=== PATIENT | male | born 1995 | race Two or more races ===

== ENCOUNTER 2022-07-15 12:14 | Emergency (ER) | payer OTHER, SELFPAY ==
--- NOTE | ~2022-07-15 | XR_ITS ---
EXAMINATION: XR CHEST CLINICAL INFORMATION: Chest tightness and shortness of breath COMPARISON: None TECHNIQUE: 2 views of the chest were obtained. FINDINGS: Heart size normal. No evidence of CHF. No consolidations or lung masses. There is some emptying of the lateral costophrenic angle on the left posterior costophrenic angle is sharp. No gross pleural effusions. XR/XR chest 2V IMPRESSION: No acute intrathoracic disease.
--- NOTE | 2022-07-15 12:19 | ECG_ITS ---
Test Reason : cp Blood Pressure : / mmHG Vent. Rate : 061 BPM Atrial Rate : 061 BPM P-R Int : 112 ms QRS Dur : 090 ms QT Int : 384 ms P-R-T Axes : 052 035 068 degrees QTc Int : 386 ms Normal sinus rhythm Normal ECG No previous ECGs available Referred By: Ria Jennings Electronically Signed By:AYALA BOOKER
--- NOTE | 2022-07-15 12:24 | ED.CHESTPAIN ---
HPI - Chest Pain General Chief Complaint: Chest Pain <AWA James Last Filed: 07/15/22 12:29> Stated Complaint: chest pain <AWA James Last Filed: 07/15/22 12:29> Time Seen by Provider: 07/15/22 12:40 <AWA James Last Filed: 07/15/22 12:29> Source: patient <AWA Quispe Last Filed: 07/15/22 18:50> Mode of arrival: ambulatory <AWA Quispe Last Filed: 07/15/22 18:50> History of Present Illness HPI narrative: 27-year-old male with past medical history of spontaneous pneumothorax presenting to the ED complaining of constant chest tightness since this morning with radiation to left upper extremity. admits pain slightly worse with movement. Reports GI symptoms with nausea, vomiting, and intermittent pain starting on Wednesday. Reports chest discomfort has improved since ED presentation. Denies numbness, tingling, weakness, current nausea/ vomiting or diarrhea, abdominal pain, cigarette smoking. Reports occasional marijuana use. Denies other illicit substances <AWA Quispe Last Filed: 07/15/22 18:50> MD complaint: chest pain <AWA Quispe Last Filed: 07/15/22 18:50> Onset (ago): hour(s) <AWA Quispe Last Filed: 07/15/22 18:50> Related Data Allergies/Adverse Reactions: Allergies Allergy/AdvReac Type Severity Reaction Status Date / Time No Known Allergies Allergy Verified 07/15/22 12:19 <AWA James Last Filed: 07/15/22 12:29> Review of Systems Review of Systems: Constitutional: No Fever, No Chills, No Fatigue, No Malaise ENT/Mouth: No Ear Pain, No Nasal Congestion, No sore throat, No Rhinorrhea, No Swallowing Difficulty Eyes: No Eye Pain, No Swelling, No Redness, No Vision Changes Cardiovascular: + Chest Pain, No SOB, No Edema, No Palpitations Respiratory: No Cough, No Sputum, No Wheezing, No Dyspnea Gastrointestinal: + Nausea (resolved), + Vomiting (resolved), No Diarrhea, No Constipation, No Abdominal pain Genitourinary: No Dysuria, No Urinary Frequency, No Hematuria, No Flank Pain Musculoskeletal: No joint pain, No Myalgias, No Joint Swelling Skin: No Skin Lesions, No rash Neuro: No Weakness, No Numbness, No Paresthesias, No Loss of Consciousness, No Dizziness, No Headache <AWA Quispe - Last Filed: 07/15/22 18:50> Yes all other systems are reviewed and are negative <AWA Quispe - Last Filed: 07/15/22 18:50> Constitutional: Constitutional: Reports as per HPI <AWA Quispe - Last Filed: 07/15/22 18:50> [facility] Past Medical History Attestation statement: The following information was validated with the patient. <AWA Quispe - Last Filed: 07/15/22 18:50> Medical History: Medical History (Updated 07/15/22 @ 17:05 by AWA Quispe) Pneumothorax <AWA James - Last Filed: 07/15/22 12:29> Family History Family History: Family History (Updated 07/15/22 @ 16:47 by Michele Garcia MD) Mother No problems noted. Father No problems noted. <AWA James - Last Filed: 07/15/22 12:29> Physical Exam Vital Signs: Vital Signs: Last Vital Signs Temp 98 F 07/15/22 12:28 Pulse 73 07/15/22 17:44 Resp 18 07/15/22 17:44 BP 127/75 07/15/22 17:44 Pulse Ox 98 07/15/22 17:44 O2 Del Method 07/15/22 17:44 BMI result Body Mass Index 23.3 <AWA James - Last Filed: 07/15/22 12:29> Vital Signs: Last Vital Signs Temp 98 F 07/15/22 12:28 Pulse 73 07/15/22 17:44 Resp 18 07/15/22 17:44 BP 127/75 07/15/22 17:44 Pulse Ox 98 07/15/22 17:44 O2 Del Method 07/15/22 17:44 BMI result Body Mass Index 23.3 <AWA Quispe - Last Filed: 07/15/22 18:50> Const: General: cooperative, healthy appearing and no acute distress <AWA Quispe - Last Filed: 07/15/22 18:50> Orientation/consciousness: patient oriented x3 <AWA Quispe - Last Filed: 07/15/22 18:50> Limitations: no limitations <AWA Quispe - Last Filed: 07/15/22 18:50> HEENT: Head: Yes normal to inspection and Yes atraumatic <AWA Quispe - Last Filed: 07/15/22 18:50> Ears: hearing grossly normal bilaterally <Yuliya Bee PA - Last Filed: 07/15/22 18:50> General nose exam: Normal external nose present <AWA Quispe - Last Filed: 07/15/22 18:50> Face and sinus: Yes normal facial exam <AWA Quispe - Last Filed: 07/15/22 18:50> Eyes: General: appearance normal, both eyes and all related structures <AWA Quispe - Last Filed: 07/15/22 18:50> EOM: EOMs intact bilaterally <Yuliya Bee PA - Last Filed: 07/15/22 18:50> Neck: Neck: Yes normal visual inspection and Yes no meningeal signs <AWA Quispe - Last Filed: 07/15/22 18:50> Chest: Chest palpation & inspection: normal inspection of the chest, no crepitus and no tenderness <AWA Quispe - Last Filed: 07/15/22 18:50> Resp: Effort & Inspection: normal respiratory effort and no respiratory distress <AWA Quispe - Last Filed: 07/15/22 18:50> Auscultation: clear to auscultation bilaterally, no crackles, no rales, no rhonchi and no wheezes <AWA Quispe - Last Filed: 07/15/22 18:50> Cardio: Rate: regular rate <WAA Quispe - Last Filed: 07/15/22 18:50> Heart sounds: S1 normal heart sound present and S2 normal heart sound present <AWA Quispe - Last Filed: 07/15/22 18:50> Peripheral pulses: Peripheral pulses 2+ throughout <AWA Quispe - Last Filed: 07/15/22 18:50> GI: Inspection: Yes normal to inspection <AWA Quispe - Last Filed: 07/15/22 18:50> Palpation (GI): Soft to palpation, nontender, no guarding and not rigid <AWA Quispe - Last Filed: 07/15/22 18:50> Skin: Rashes: no rashes <AWA Quispe - Last Filed: 07/15/22 18:50> Wounds: no wounds <AWA Quispe - Last Filed: 07/15/22 18:50> Neuro: General: patient oriented x3, tone normal and no meningeal signs <AWA Quispe - Last Filed: 07/15/22 18:50> Gait exam (Neuro): Normal gait present <AWA Quispe - Last Filed: 07/15/22 18:50> Extrem: General: Yes normal to inspection, Yes no pedal edema and Yes no calf tenderness <AWA Quispe Last Filed: 07/15/22 18:50> Course Course Course Narrative: RME-12:30pm 27yoM c PMHx of Spontaneous pneumothorax c c/o of Chest tightness and SOB since Wednesday that has been intermittent. Today he reports he was just laying down and started and felt very intense. Had a GI bug Wednesday although feels better from that but was having N/V. Has not had any N/V since then. Denies drug usage including cocaine. Denies recent travel. Plan: EKG, CXR, COVID/RSV/flu swab and labs and patient will be sent back to the waiting room for further evaluation treatment. <AWA James - Last Filed: 07/15/22 12:29> RME-12:30pm 27yoM c PMHx of Spontaneous pneumothorax c c/o of Chest tightness and SOB since Wednesday that has been intermittent. Today he reports he was just laying down and started and felt very intense. Had a GI bug Wednesday although feels better from that but was having N/V. Has not had any N/V since then. Denies drug usage including cocaine. Denies recent travel. Plan: EKG, CXR, COVID/RSV/flu swab and labs and patient will be sent back to the waiting room for further evaluation treatment. - patient's troponin elevated at 597.7 >> case discussed with ED attending who also evaluated patient, repeat EKG with slight changes >> will give patient ASA, nitro paste, IV Toradol and consult Cardiology - Consulted Cardiology Dr. Garcia who recommended stat echo and NSAIDs as possibly Lamine /pericarditis XR chest 2V IMPRESSION: No acute intrathoracic disease. - COVID-19/influenza/ RSV negative -1455-- no leukocytosis. D-dimer negative. CRP mildly elevated to 1.45 -1600--repeat trop 1398.3 > ECHO at bedside, will obtain repeat EKG -1700--Transthoracic Echocardiogram Conclusions: - The left ventricular systolic function is low normal.? The ? ? calculated ejection fraction is 54% by biplane method. ? - The inferolateral wall, the apical inferior, basal inferior, ? and mid anterolateral segments are hypokinetic.? - No obvious valvular pathology seen on this study.? >> patient to be transferred to [facility] & initiate IV heparin per Dr. Garcia. No bed available at this time, will check back in a few hours Jose. [id number]-- Accepting physician <AWA Quispe - Last Filed: 07/15/22 18:50> Medications Administered Discontinued Medications Generic Name Dose Route Start Last Admin Trade Name Freq PRN Reason Stop Dose Admin Aspirin 324 mg 07/15/22 13:28 07/15/22 13:43 Aspirin 81 Mg Tab.Chew PO 07/15/22 13:29 324 mg ONCE ONE Administration Famotidine 20 mg 07/15/22 13:29 07/15/22 13:44 Famotidine/Pf 20 Mg/2 Ml Vial IVPUSH 07/15/22 13:30 20 mg ONCE ONE Administration Heparin Sodium/Sodium Chloride 25,000 unit in 250 mls @ 0 mls/hr 07/15/22 17:15 07/15/22 17:49 Heparin Sodium,Porcine/1/2ns IVCONT 12 units/kg/hr .Q0M RICHIE 9.92 mls/hr Administration Protocol Per Protocol Ketorolac Tromethamine 15 mg 07/15/22 13:29 07/15/22 13:43 Ketorolac Tromethamine 15 Mg/Ml Vial IVPUSH 07/15/22 13:30 15 mg ONCE ONE Administration Nitroglycerin 1 inch 07/15/22 13:28 07/15/22 13:44 Nitroglycerin 2 % Oint 1 Gm Packet TRANSDERMA 07/15/22 13:29 1 inch ONCE ONE Administration <AWA James - Last Filed: 07/15/22 12:29> Medications Administered Discontinued Medications Generic Name Dose Route Start Last Admin Trade Name Freq PRN Reason Stop Dose Admin Aspirin 324 mg 07/15/22 13:28 07/15/22 13:43 Aspirin 81 Mg Tab.Chew PO 07/15/22 13:29 324 mg ONCE ONE Administration Famotidine 20 mg 07/15/22 13:29 07/15/22 13:44 Famotidine/Pf 20 Mg/2 Ml Vial IVPUSH 07/15/22 13:30 20 mg ONCE ONE Administration Heparin Sodium/Sodium Chloride 25,000 unit in 250 mls @ 0 mls/hr 07/15/22 17:15 07/15/22 17:49 Heparin Sodium,Porcine/1/2ns IVCONT 12 units/kg/hr .Q0M RICHIE 9.92 mls/hr Administration Protocol Per Protocol Ketorolac Tromethamine 15 mg 07/15/22 13:29 07/15/22 13:43 Ketorolac Tromethamine 15 Mg/Ml Vial IVPUSH 07/15/22 13:30 15 mg ONCE ONE Administration Nitroglycerin 1 inch 07/15/22 13:28 07/15/22 13:44 Nitroglycerin 2 % Oint 1 Gm Packet TRANSDERMA 07/15/22 13:29 1 inch ONCE ONE Administration <AWA Quispe - Last Filed: 07/15/22 18:50> Medical Decision Making Medical Decision Making MDM Narrative: 27-year-old male with past medical history of spontaneous pneumothorax presenting to the ED complaining of constant chest tightness since this morning with radiation to left upper extremity. On exam vital signs stable, NAD/nontoxic appearing, chest pain not reproducible, lungs CTA, abdomen soft/ nontender, no pedal edema/calf tenderness. Concern for pericarditis/myocarditis vs ACS vs GERD/gastritis. PE on ddx but lower. Rule out recurrent pneumothorax vs pneumonia plan: EKG, labs, CXR, COVID-19/influenza/ RSV testing Please refer to course for remaining clinical decision making, interpretation of labs/imaging results, and discussions with consultants and/or family members. <AWA Quispe - Last Filed: 07/15/22 18:50> Differential Diagnosis Differential Diagnoses: The differential diagnosis associated with the presentation includes <AWA Quispe - Last Filed: 07/15/22 18:50> as above <AWA Quispe - Last Filed: 07/15/22 18:50> Admission/Observation Consideration of admission/observation: Escalation of care including admission/observation considered <AWA Quispe - Last Filed: 07/15/22 18:50> Consult Healthcare Provider Management of the patient was discussed with: Leather Polisher <AWA Quispe - Last Filed: 07/15/22 18:50> Dr. Restrepo (ED Attending) <AWA Quispe - Last Filed: 07/15/22 18:50> Lab Data MDM Lab Attestation statement: I reviewed the patient's lab results. <AWA Quispe - Last Filed: 07/15/22 18:50> Result Diagrams: 07/15/22 12:34 07/15/22 12:34 <AWA James - Last Filed: 07/15/22 12:29> Labs: Lab Results 07/15/22 07/15/22 07/15/22 Range/Units 12:34 12:34 12:34 WBC 7.6 (4.8-10.8) X10*3/uL RBC 5.17 (4.60-5.80) X10*6/uL Hgb 16.2 (14.0-18.0) g/dl Hct 46.9 (42.0-52.0) % MCV 90.7 (80.0-98.0) fL MCH 31.3 (27.0-33.0) pg MCHC 34.5 (31.0-36.0) g/dl RDW 13.5 (11.0-16.0) % Plt Count 188 (160-400) X10*3/uL MPV 11.1 (9.4-12.4) fL Immature Gran % (Auto) 0.1 (0.0-0.4) % Neut % (Auto) 56.1 (45-73) % Lymph % (Auto) 30.3 (20-40) % [place] % (Auto) 11.8 H (2-11) % Eos % (Auto) 1.4 (0-4) % Baso % (Auto) 0.3 (0-2) % Lymph # (Auto) 2.3 (1.2-4.9) X10*3/uL [place] # (Auto) 0.9 (0.1-1.2) X10*3/uL Eos # (Auto) 0.1 (0.0-0.4) X10*3/uL Baso # (Auto) 0.0 (0.0-0.2) X10*3/uL Abs Immat Gran (auto) 0.01 (0.00-0.03) X10*3/uL Absolute Neuts (auto) 4.3 (2.0-8.3) x10*3/uL Absolute Nucleated RBC 0.000 (0.0-0.012) X10*3/uL Nucleated RBC % (auto) 0.0 (0.0-0.2) /100WBC PT (10.0-13.1) SEC INR (0.9-1.1) APTT (26.0-36.4) SEC D-Dimer High Sensitivty NG/ML Sodium 139 (135-145) mmol/L Potassium 4.2 (3.3-5.1) mmol/L Chloride 102 (96-108) mmol/L Carbon Dioxide 27 (22-29) mmol/L Anion Gap 14 (12-20) BUN 13 (9-16) mg/dL Creatinine 1.09 (0.5-1.4) mg/dL Estim Creat Clear Calc 119.6 Estimated GFR > 60 Random Glucose 99 (60-115) mg/dL Calcium 9.4 (8.4-10.2) mg/dL Magnesium 1.8 (1.6-2.6) mg/dL Total Bilirubin 0.8 (0.0-1.0) mg/dL AST 22 (5-37) U/L ALT 21 (0-40) U/L Alkaline Phosphatase 102 (39-117) U/L Troponin I High Sens (<3.5-35.0) ng/L C-Reactive Protein 1.45 H (< or = 0.50) mg/dL B-Natriuretic Peptide (<100) pg/mL Total Protein 7.6 (6.5-8.0) g/dL Albumin 4.4 (3.5-5.0) g/dL Lipase 11 (8-78) U/L Urine Opiates Screen (Not Detect) Urine Fentanyl Screen (Not Detect) Ur Barbiturates Screen (Not Detect) Ur Phencyclidine Scrn (Not Detect) Ur Amphetamines Screen (Not Detect) U Benzodiazepines Scrn (Not Detect) Urine Cocaine Screen (Not Detect) U Marijuana (THC) Screen (Not Detect) Influenza Type A (PCR) NEGATIVE (Negative) Influenza Type B (PCR) NEGATIVE (Negative) RSV RNA Qual (PCR) NEGATIVE (Negative) SARS-CoV-2 RNA (RT-PCR) NEGATIVE (Negative) 07/15/22 07/15/22 07/15/22 Range/Units 12:34 12:34 13:51 WBC (4.8-10.8) X10*3/uL RBC (4.60-5.80) X10*6/uL Hgb (14.0-18.0) g/dl Hct (42.0-52.0) % MCV (80.0-98.0) fL MCH (27.0-33.0) pg MCHC (31.0-36.0) g/dl RDW (11.0-16.0) % Plt Count (160-400) X10*3/uL MPV (9.4-12.4) fL Immature Gran % (Auto) (0.0-0.4) % Neut % (Auto) (45-73) % Lymph % (Auto) (20-40) % [place] % (Auto) (2-11) % Eos % (Auto) (0-4) % Baso % (Auto) (0-2) % Lymph # (Auto) (1.2-4.9) X10*3/uL [place] # (Auto) (0.1-1.2) X10*3/uL Eos # (Auto) (0.0-0.4) X10*3/uL Baso # (Auto) (0.0-0.2) X10*3/uL Abs Immat Gran (auto) (0.00-0.03) X10*3/uL Absolute Neuts (auto) (2.0-8.3) x10*3/uL Absolute Nucleated RBC (0.0-0.012) X10*3/uL Nucleated RBC % (auto) (0.0-0.2) /100WBC PT (10.0-13.1) SEC INR (0.9-1.1) APTT (26.0-36.4) SEC D-Dimer High Sensitivty < 150 NG/ML Sodium (135-145) mmol/L Potassium (3.3-5.1) mmol/L Chloride (96-108) mmol/L Carbon Dioxide (22-29) mmol/L Anion Gap (12-20) BUN (9-16) mg/dL Creatinine (0.5-1.4) mg/dL Estim Creat Clear Calc Estimated GFR Random Glucose (60-115) mg/dL Calcium (8.4-10.2) mg/dL Magnesium (1.6-2.6) mg/dL Total Bilirubin (0.0-1.0) mg/dL AST (5-37) U/L ALT (0-40) U/L Alkaline Phosphatase (39-117) U/L Troponin I High Sens 597.7 H* (<3.5-35.0) ng/L C-Reactive Protein (< or = 0.50) mg/dL B-Natriuretic Peptide 18 (<100) pg/mL Total Protein (6.5-8.0) g/dL Albumin (3.5-5.0) g/dL Lipase (8-78) U/L Urine Opiates Screen (Not Detect) Urine Fentanyl Screen (Not Detect) Ur Barbiturates Screen (Not Detect) Ur Phencyclidine Scrn (Not Detect) Ur Amphetamines Screen (Not Detect) U Benzodiazepines Scrn (Not Detect) Urine Cocaine Screen (Not Detect) U Marijuana (THC) Screen (Not Detect) Influenza Type A (PCR) (Negative) Influenza Type B (PCR) (Negative) RSV RNA Qual (PCR) (Negative) SARS-CoV-2 RNA (RT-PCR) (Negative) 07/15/22 07/15/22 07/15/22 Range/Units 13:51 15:21 17:06 WBC (4.8-10.8) X10*3/uL RBC (4.60-5.80) X10*6/uL Hgb (14.0-18.0) g/dl Hct (42.0-52.0) % MCV (80.0-98.0) fL MCH (27.0-33.0) pg MCHC (31.0-36.0) g/dl RDW (11.0-16.0) % Plt Count (160-400) X10*3/uL MPV (9.4-12.4) fL Immature Gran % (Auto) (0.0-0.4) % Neut % (Auto) (45-73) % Lymph % (Auto) (20-40) % [place] % (Auto) (2-11) % Eos % (Auto) (0-4) % Baso % (Auto) (0-2) % Lymph # (Auto) (1.2-4.9) X10*3/uL [place] # (Auto) (0.1-1.2) X10*3/uL Eos # (Auto) (0.0-0.4) X10*3/uL Baso # (Auto) (0.0-0.2) X10*3/uL Abs Immat Gran (auto) (0.00-0.03) X10*3/uL Absolute Neuts (auto) (2.0-8.3) x10*3/uL Absolute Nucleated RBC (0.0-0.012) X10*3/uL Nucleated RBC % (auto) (0.0-0.2) /100WBC PT 11.6 (10.0-13.1) SEC INR 1.0 (0.9-1.1) APTT 32.0 (26.0-36.4) SEC D-Dimer High Sensitivty NG/ML Sodium (135-145) mmol/L Potassium (3.3-5.1) mmol/L Chloride (96-108) mmol/L Carbon Dioxide (22-29) mmol/L Anion Gap (12-20) BUN (9-16) mg/dL Creatinine (0.5-1.4) mg/dL Estim Creat Clear Calc Estimated GFR Random Glucose (60-115) mg/dL Calcium (8.4-10.2) mg/dL Magnesium (1.6-2.6) mg/dL Total Bilirubin (0.0-1.0) mg/dL AST (5-37) U/L ALT (0-40) U/L Alkaline Phosphatase (39-117) U/L Troponin I High Sens 1398.3 H* D (<3.5-35.0) ng/L C-Reactive Protein (< or = 0.50) mg/dL B-Natriuretic Peptide (<100) pg/mL Total Protein (6.5-8.0) g/dL Albumin (3.5-5.0) g/dL Lipase (8-78) U/L Urine Opiates Screen Not Detected (Not Detect) Urine Fentanyl Screen Not Detected (Not Detect) Ur Barbiturates Screen Not Detected (Not Detect) Ur Phencyclidine Scrn Not Detected (Not Detect) Ur Amphetamines Screen Not Detected (Not Detect) U Benzodiazepines Scrn Not Detected (Not Detect) Urine Cocaine Screen Not Detected (Not Detect) U Marijuana (THC) Screen POSITIVE H (Not Detect) Influenza Type A (PCR) (Negative) Influenza Type B (PCR) (Negative) RSV RNA Qual (PCR) (Negative) SARS-CoV-2 RNA (RT-PCR) (Negative) <AWA James - Last Filed: 07/15/22 12:29> Lab Results 07/15/22 07/15/22 07/15/22 Range/Units 12:34 12:34 12:34 WBC 7.6 (4.8-10.8) X10*3/uL RBC 5.17 (4.60-5.80) X10*6/uL Hgb 16.2 (14.0-18.0) g/dl Hct 46.9 (42.0-52.0) % MCV 90.7 (80.0-98.0) fL MCH 31.3 (27.0-33.0) pg MCHC 34.5 (31.0-36.0) g/dl RDW 13.5 (11.0-16.0) % Plt Count 188 (160-400) X10*3/uL MPV 11.1 (9.4-12.4) fL Immature Gran % (Auto) 0.1 (0.0-0.4) % Neut % (Auto) 56.1 (45-73) % Lymph % (Auto) 30.3 (20-40) % [place] % (Auto) 11.8 H (2-11) % Eos % (Auto) 1.4 (0-4) % Baso % (Auto) 0.3 (0-2) % Lymph # (Auto) 2.3 (1.2-4.9) X10*3/uL [place] # (Auto) 0.9 (0.1-1.2) X10*3/uL Eos # (Auto) 0.1 (0.0-0.4) X10*3/uL Baso # (Auto) 0.0 (0.0-0.2) X10*3/uL Abs Immat Gran (auto) 0.01 (0.00-0.03) X10*3/uL Absolute Neuts (auto) 4.3 (2.0-8.3) x10*3/uL Absolute Nucleated RBC 0.000 (0.0-0.012) X10*3/uL Nucleated RBC % (auto) 0.0 (0.0-0.2) /100WBC PT (10.0-13.1) SEC INR (0.9-1.1) APTT (26.0-36.4) SEC D-Dimer High Sensitivty NG/ML Sodium 139 (135-145) mmol/L Potassium 4.2 (3.3-5.1) mmol/L Chloride 102 (96-108) mmol/L Carbon Dioxide 27 (22-29) mmol/L Anion Gap 14 (12-20) BUN 13 (9-16) mg/dL Creatinine 1.09 (0.5-1.4) mg/dL Estim Creat Clear Calc 119.6 Estimated GFR > 60 Random Glucose 99 (60-115) mg/dL Calcium 9.4 (8.4-10.2) mg/dL Magnesium 1.8 (1.6-2.6) mg/dL Total Bilirubin 0.8 (0.0-1.0) mg/dL AST 22 (5-37) U/L ALT 21 (0-40) U/L Alkaline Phosphatase 102 (39-117) U/L Troponin I High Sens (<3.5-35.0) ng/L C-Reactive Protein 1.45 H (< or = 0.50) mg/dL B-Natriuretic Peptide (<100) pg/mL Total Protein 7.6 (6.5-8.0) g/dL Albumin 4.4 (3.5-5.0) g/dL Lipase 11 (8-78) U/L Urine Opiates Screen (Not Detect) Urine Fentanyl Screen (Not Detect) Ur Barbiturates Screen (Not Detect) Ur Phencyclidine Scrn (Not Detect) Ur Amphetamines Screen (Not Detect) U Benzodiazepines Scrn (Not Detect) Urine Cocaine Screen (Not Detect) U Marijuana (THC) Screen (Not Detect) Influenza Type A (PCR) NEGATIVE (Negative) Influenza Type B (PCR) NEGATIVE (Negative) RSV RNA Qual (PCR) NEGATIVE (Negative) SARS-CoV-2 RNA (RT-PCR) NEGATIVE (Negative) 07/15/22 07/15/22 07/15/22 Range/Units 12:34 12:34 13:51 WBC (4.8-10.8) X10*3/uL RBC (4.60-5.80) X10*6/uL Hgb (14.0-18.0) g/dl Hct (42.0-52.0) % MCV (80.0-98.0) fL MCH (27.0-33.0) pg MCHC (31.0-36.0) g/dl RDW (11.0-16.0) % Plt Count (160-400) X10*3/uL MPV (9.4-12.4) fL Immature Gran % (Auto) (0.0-0.4) % Neut % (Auto) (45-73) % Lymph % (Auto) (20-40) % [place] % (Auto) (2-11) % Eos % (Auto) (0-4) % Baso % (Auto) (0-2) % Lymph # (Auto) (1.2-4.9) X10*3/uL [place] # (Auto) (0.1-1.2) X10*3/uL Eos # (Auto) (0.0-0.4) X10*3/uL Baso # (Auto) (0.0-0.2) X10*3/uL Abs Immat Gran (auto) (0.00-0.03) X10*3/uL Absolute Neuts (auto) (2.0-8.3) x10*3/uL Absolute Nucleated RBC (0.0-0.012) X10*3/uL Nucleated RBC % (auto) (0.0-0.2) /100WBC PT (10.0-13.1) SEC INR (0.9-1.1) APTT (26.0-36.4) SEC D-Dimer High Sensitivty < 150 NG/ML Sodium (135-145) mmol/L Potassium (3.3-5.1) mmol/L Chloride (96-108) mmol/L Carbon Dioxide (22-29) mmol/L Anion Gap (12-20) BUN (9-16) mg/dL Creatinine (0.5-1.4) mg/dL Estim Creat Clear Calc Estimated GFR Random Glucose (60-115) mg/dL Calcium (8.4-10.2) mg/dL Magnesium (1.6-2.6) mg/dL Total Bilirubin (0.0-1.0) mg/dL AST (5-37) U/L ALT (0-40) U/L Alkaline Phosphatase (39-117) U/L Troponin I High Sens 597.7 H* (<3.5-35.0) ng/L C-Reactive Protein (< or = 0.50) mg/dL B-Natriuretic Peptide 18 (<100) pg/mL Total Protein (6.5-8.0) g/dL Albumin (3.5-5.0) g/dL Lipase (8-78) U/L Urine Opiates Screen (Not Detect) Urine Fentanyl Screen (Not Detect) Ur Barbiturates Screen (Not Detect) Ur Phencyclidine Scrn (Not Detect) Ur Amphetamines Screen (Not Detect) U Benzodiazepines Scrn (Not Detect) Urine Cocaine Screen (Not Detect) U Marijuana (THC) Screen (Not Detect) Influenza Type A (PCR) (Negative) Influenza Type B (PCR) (Negative) RSV RNA Qual (PCR) (Negative) SARS-CoV-2 RNA (RT-PCR) (Negative) 07/15/22 07/15/22 07/15/22 Range/Units 13:51 15:21 17:06 WBC (4.8-10.8) X10*3/uL RBC (4.60-5.80) X10*6/uL Hgb (14.0-18.0) g/dl Hct (42.0-52.0) % MCV (80.0-98.0) fL MCH (27.0-33.0) pg MCHC (31.0-36.0) g/dl RDW (11.0-16.0) % Plt Count (160-400) X10*3/uL MPV (9.4-12.4) fL Immature Gran % (Auto) (0.0-0.4) % Neut % (Auto) (45-73) % Lymph % (Auto) (20-40) % [place] % (Auto) (2-11) % Eos % (Auto) (0-4) % Baso % (Auto) (0-2) % Lymph # (Auto) (1.2-4.9) X10*3/uL [place] # (Auto) (0.1-1.2) X10*3/uL Eos # (Auto) (0.0-0.4) X10*3/uL Baso # (Auto) (0.0-0.2) X10*3/uL Abs Immat Gran (auto) (0.00-0.03) X10*3/uL Absolute Neuts (auto) (2.0-8.3) x10*3/uL Absolute Nucleated RBC (0.0-0.012) X10*3/uL Nucleated RBC % (auto) (0.0-0.2) /100WBC PT 11.6 (10.0-13.1) SEC INR 1.0 (0.9-1.1) APTT 32.0 (26.0-36.4) SEC D-Dimer High Sensitivty NG/ML Sodium (135-145) mmol/L Potassium (3.3-5.1) mmol/L Chloride (96-108) mmol/L Carbon Dioxide (22-29) mmol/L Anion Gap (12-20) BUN (9-16) mg/dL Creatinine (0.5-1.4) mg/dL Estim Creat Clear Calc Estimated GFR Random Glucose (60-115) mg/dL Calcium (8.4-10.2) mg/dL Magnesium (1.6-2.6) mg/dL Total Bilirubin (0.0-1.0) mg/dL AST (5-37) U/L ALT (0-40) U/L Alkaline Phosphatase (39-117) U/L Troponin I High Sens 1398.3 H* D (<3.5-35.0) ng/L C-Reactive Protein (< or = 0.50) mg/dL B-Natriuretic Peptide (<100) pg/mL Total Protein (6.5-8.0) g/dL Albumin (3.5-5.0) g/dL Lipase (8-78) U/L Urine Opiates Screen Not Detected (Not Detect) Urine Fentanyl Screen Not Detected (Not Detect) Ur Barbiturates Screen Not Detected (Not Detect) Ur Phencyclidine Scrn Not Detected (Not Detect) Ur Amphetamines Screen Not Detected (Not Detect) U Benzodiazepines Scrn Not Detected (Not Detect) Urine Cocaine Screen Not Detected (Not Detect) U Marijuana (THC) Screen POSITIVE H (Not Detect) Influenza Type A (PCR) (Negative) Influenza Type B (PCR) (Negative) RSV RNA Qual (PCR) (Negative) SARS-CoV-2 RNA (RT-PCR) (Negative) <AWA Quispe Last Filed: 07/15/22 18:50> Independent Interpretation I performed an independent interpretation of an: EKG and Plain X-Ray <AWA Quispe Last Filed: 07/15/22 18:50> Interpretation: 1st EKG normal sinus rhythm at a rate of 61. [place] interval 112. QTC 386. No STEMI. Nonischemic. No available priors to compare 2nd EKG normal sinus rhythm at a rate of 71. Mild ST elevations in lead 3 and AVF. No reciprocal changes/ST depression. QTC 397 <AWA Quispe Last Filed: 07/15/22 18:50> Radiology Impression Discussion of test interpretation with radiology: I have reviewed the radiologist's reading. <AWA Quispe - Last Filed: 07/15/22 18:50> Prescription Management I considered prescription management with: Pain Medication, Antiviral and Antibiotic <AWA Quispe - Last Filed: 07/15/22 18:50> Critical Care Time Critical Care Time Critical Care Time: Yes <AWA Quispe - Last Filed: 07/15/22 18:50> Total Critical Care Time: 60 <AWA Quispe - Last Filed: 07/15/22 18:50> Attestation: I have personally provided critical care time exclusive of time spent on separately billable procedures. Time includes review of lab data, radiology results, discussion with consultants, and monitoring for potential decompensation. Intervention performed as documented. <AWA Quispe - Last Filed: 07/15/22 18:50> Discharge Plan Discharge Clinical Impression: NSTEMI (non-ST elevated myocardial infarction), Myocarditis <AWA James - Last Filed: 07/15/22 12:29> Patient Disposition: [facility] <AWA James - Last Filed: 07/15/22 12:29> Transfer Details: Accepting physician Dr. Leon at [facility] <AWA James Last Filed: 07/15/22 12:29> Accepting physician Dr. Leon at [facility] <AWA Quispe - Last Filed: 07/15/22 18:50> Interventions: Acute Care Transfer Worksheet (ED) Last Done: 07/15/22 18:05 <AWA James Last Filed: 07/15/22 12:29> Discharge Date/Time: 07/15/22 18:07 <AWA James Last Filed: 07/15/22 12:29>
[2022-07-15 12:28] VITALS: BP 126/81; PULSE 79; RESP 16; TEMP 36.6; O2SAT 99; BMI 23.1
[2022-07-15 12:39] LABS: MANUAL DIFF FLAG NO
[2022-07-15 12:46] LABS: Basophils Percent Auto 0.3 % (0-2); Eosinophils Absolute Auto 0.1 X10*3/uL (0.0-0.4); Eosinophils Percent Auto 1.4 % (0-4); Hematocrit 46.9 % (42.0-52.0); Hemoglobin 16.2 g/dl (14.0-18.0); Imm Gran Abs Auto 0.01 X10*3/uL (0.00-0.03); Imm Gran Pct Auto 0.1 % (0.0-0.4); Lymphocytes Absolute Auto 2.3 X10*3/uL (1.2-4.9); Lymphocytes Percent Auto 30.3 % (20-40); Mean Corpuscular HGB Conc 34.5 g/dl (31.0-36.0); Mean Corpuscular Hemoglobin 31.3 pg (27.0-33.0); Mean Corpuscular Volume 90.7 fL (80.0-98.0); Mean Platelet Volume 11.1 fL (9.4-12.4); Monocytes Absolute Auto 0.9 X10*3/uL (0.1-1.2); Monocytes Percent Auto 11.8 % (2-11); Neutrophils Absolute Auto 4.3 x10*3/uL (2.0-8.3); Neutrophils Percent Auto 56.1 % (45-73); Platelet Count 188 X10*3/uL (160-400); Red Blood Count 5.17 X10*6/uL (4.60-5.80); Red Cell Distribution Width 13.5 % (11.0-16.0); White Blood Count 7.6 X10*3/uL (4.8-10.8)
[2022-07-15 13:02] LABS: Alanine Aminotransferase 21 U/L (0-40); Albumin Level 4.4 g/dL (3.5-5.0); Alkaline Phosphatase 102 U/L (39-117); Anion Gap 14 (12-20); Aspartate Amino Transferase 22 U/L (5-37); Bilirubin Total 0.8 mg/dL (0.0-1.0); Blood Urea Nitrogen 13 mg/dL (9-16); Calcium 9.4 mg/dL (8.4-10.2); Carbon Dioxide 27 mmol/L (22-29); Chloride 102 mmol/L (96-108); Creatinine Clr Calc Pharmacy 119.6; Estimated Glomerular Filt Rate > 60; Glucose Random 99 mg/dL (60-115); Magnesium 1.8 mg/dL (1.6-2.6); Potassium 4.2 mmol/L (3.3-5.1); Sodium 139 mmol/L (135-145); Total Protein 7.6 g/dL (6.5-8.0)
[2022-07-15 13:18] LABS: Troponin-I High Sensitivity 597.7 ng/L (<3.5-35.0)
--- NOTE | 2022-07-15 13:21 | ECG_ITS ---
Test Reason : CHEST PAIN Blood Pressure : / mmHG Vent. Rate : 071 BPM Atrial Rate : 071 BPM P-R Int : 128 ms QRS Dur : 090 ms QT Int : 366 ms P-R-T Axes : 030 031 062 degrees QTc Int : 397 ms Normal sinus rhythm Very slight inferior ST elevation, consider pericarditis Abnormal ECG When compared with ECG of 15-JUL-2022 12:22, change noted in inferior leads Referred By: Yuliya Bee Electronically Signed By:AYALA BOOKER
[2022-07-15 13:38] LABS: Influenza A PCR NEGATIVE (Negative); Influenza B PCR NEGATIVE (Negative); Resp Syncy Virus RNA Qual PCR NEGATIVE (Negative); SARS COV2 PCR INHOUSE NEGATIVE (Negative)
--- NOTE | 2022-07-15 13:38 | CA_ITS ---
Transthoracic Echocardiogram Patient (Last, First, Middle): Kye Mclean, Gender: Male Date of : 1995 Age: 27 Procedure Date: 07/15/2022 Procedure Type: Transthoracic Echocardiogram Location: ER Height: 187.96 cm Weight: 82.56 kg BSA: 2.09 m2 Heart Rate: bpm BP: 122 / 74 mmHg Industrial Recruiter: PERRY Referring MD: Yuliya BILLINGS Symptoms: Elevated troponin. CP Study Quality: Adequate ECG Rhythm: Sinus Conclusions: - The left ventricular systolic function is low normal. The calculated ejection fraction is 54% by biplane method. - The inferolateral wall, the apical inferior, basal inferior, and mid anterolateral segments are hypokinetic. - No obvious valvular pathology seen on this study. Findings Procedure Information Contrast agent, definity, is being given per protocol without apparent complications. Left Ventricle Normal left ventricular cavity size. There is normal left ventricular wall thickness. The left ventricular systolic function is low normal. The calculated ejection fraction is 54% by biplane method. There is evidence of regional wall motion abnormalities. Diastolic function is normal for age. Wall Motion Rest Echo Findings The inferolateral wall, the apical inferior, basal inferior, and mid anterolateral segments are hypokinetic. Right Ventricle Normal right ventricular cavity size and systolic function. Atria Both atria are normal in size. Aortic Valve There is a normal trileaflet aortic valve. There is no aortic valve stenosis. There is no aortic valve regurgitation. Mitral Valve The mitral valve appears normal. There is trace mitral valve regurgitation. There is no mitral valve stenosis. Pulmonic Valve The pulmonic valve is likely normal. Tricuspid Valve Normal tricuspid valve structure. There is trace tricuspid valve regurgitation. There is no evidence of pulmonary hypertension. Great Vessels The asc aorta and aortic arch are normal in size. Venous The inferior vena cava is normal in size and collapses greater than 50% with inspiration. Pericardium/Pleural There is no evidence of pericardial effusion. Prior Study Comparison No prior study available for comparison. Recommendations, Care & Conclusions No obvious valvular pathology seen on this study. Measurements 2D Linear Measurements IVSd: 0.77 0.6-0.9/0.6-1.0 cm LVIDd: 4.68 3.9-5.3/4.2-5.9 cm LVIDd Index: 2.24 2.4-3.2/2.2-3.1 cm/m2 LVIDs: 3.25 2.0-3.6 cm LVPWd: 0.92 0.7-1.1 cm Ao Root: 3.00 2.1-3.5 cm LA Diam: 3.10 2.7-3.8/3.0-4.0 cm LAIDs Index: 1.48 1.5-2.3 cm/m2 LV Mass: 161.96 67-162/88-224 g LV Mass Index: 77.49 43-95/49-115 g/m2 LVOT Diam: 2.00 3.0+(-)1.3 cm 2D Systolic Function EF 4C: 54.50 >55% EF 2C: 54.00 >55% EF BiP: 54.40 >55% Mitral Valve MV Pk E: 0.86 MV PK A: 0.65 MV Decel Time: 235.00 E/A: 1.30 E'Lateral: 16.40 E'Medial: 13.20 E/E' Med: 6.50 E/E' Lat: 5.20 PHT: 69.00 MVA PHT: 3.19 Decel [place]: 3.64 Aortic Valve AoV Pk Fernando: 1.36 AoV Mn Fernando: 0.93 AoV VTI: 0.25 AoV Pk Grad: 7.00 Aov Mn Grad: 4.00 CLIFFORD Cont.VTI: 2.59 LVOT LVOT Pk Fernando: 1.12 LVOT Mn Fernando: 0.75 LVOT VTI: 0.21 LVOT Pk Grad: 5.00 LVOT Mn Grad: 3.00 LVOT Diam: 2.00 LVOT Area: 3.14 Diastolic Function MV Pk E: 0.86 MV Pk A: 0.65 E/A: 1.30 E'Medial: 13.20 E/E' Med: 6.50 E' Laterial: 16.40 E/E' Lat: 5.20 Right Ventricle TAPSE (mm): 33.00 TVS' Fernando: 14.00 Tricuspid Valve TR Pk Fernando: 2.01 TR Pk Grad: 16.00 RA Press: 3.00 RVSP: 19.00 Great Vessels Aorta Ao Root-2D: 3.00 2.0-3.7 cm Ao Asc: 3.00 2.1-3.4 cm Ao Arch: 2.20 Pulmonary Valve PV Pk Fernando: 1.13 Peak PV Grad: 5.00 Updated in Other Vendor System with Status of Final Michele Garcia MD electronically signed on 07/15/2022 4:45:13 PM with status of Final
[2022-07-15] MEDS: Aspirin 81 MG TAB.CHEW 324 MG PO (13:43)
[2022-07-15] MEDS: Ketorolac Tromethamine 15 MG/ML VIAL IVPUSH (13:43)
[2022-07-15] MEDS: Famotidine/PF 20 MG/2 ML VIAL IVPUSH (13:44)
[2022-07-15] MEDS: Nitroglycerin 2 % Oint 1 GM Packet 1 INCH TRANSDERMA (13:44)
[2022-07-15 13:46] VITALS: BMI 23.5
[2022-07-15 13:54] VITALS: BP 135/84; PULSE 83; RESP 16; O2SAT 99
--- NOTE | 2022-07-15 13:55 | ECG_ITS ---
Test Reason : CHEST PAIN Blood Pressure : / mmHG Vent. Rate : 078 BPM Atrial Rate : 078 BPM P-R Int : 124 ms QRS Dur : 090 ms QT Int : 364 ms P-R-T Axes : 055 007 042 degrees QTc Int : 414 ms Normal sinus rhythm Normal ECG When compared with ECG of 15-JUL-2022 13:31, No significant change was found Referred By: Yuliya Bee Electronically Signed By:AYALA BOOKER
--- NOTE | 2022-07-15 13:57 | PC.NURSE ---
patient awake and alert. skin pwd, resp even and non labored, speaking in full, clear sentences. patient and mother aware of elevated troponin and EKG changes. patient denies chest pain at this time. 2 IVs established and patient medicated per orders. patient aware of plan of care for echo and admission.
[2022-07-15 14:04] LABS: B Type Natriuretic Peptide 18 pg/mL (<100)
[2022-07-15 14:05] LABS: Prothrombin Time 11.6 SEC (10.0-13.1)
[2022-07-15 14:08] LABS: D Dimer High Sensitivity < 150 NG/ML
[2022-07-15 14:38] VITALS: BP 122/74; PULSE 96; RESP 16; O2SAT 99
[2022-07-15 14:38] LABS: Lipase 11 U/L (8-78)
[2022-07-15 14:41] LABS: C Reactive Protein 1.45 mg/dL (< or = 0.50)
--- NOTE | 2022-07-15 16:00 | ECG_ITS ---
Test Reason : ELEVATED TROP Blood Pressure : / mmHG Vent. Rate : 070 BPM Atrial Rate : 070 BPM P-R Int : 132 ms QRS Dur : 088 ms QT Int : 364 ms P-R-T Axes : 058 018 065 degrees QTc Int : 393 ms Normal sinus rhythm Normal ECG When compared with ECG of 15-JUL-2022 13:59, No significant change was found Referred By: Yuliya Bee Electronically Signed By:AYALA BOOKER
[2022-07-15 16:01] LABS: Troponin-I High Sensitivity 1398.3 ng/L (<3.5-35.0)
--- NOTE | 2022-07-15 16:04 | PC.NURSE ---
Addendum entered by Patricia Jones RN 07/15/22 17:59: report given to [facility] [place] [facility]. pt to be transfer to [place] [id number] room 17. pt left alert and oriented denies any chest pain Addendum entered by Patricia Jones RN 07/15/22 17:54: report given to transport team Original Note: pt is alert and oriented resting in bed family by bedside pt on continuos cardiac monitoring denies any chest pain at this moment
--- NOTE | 2022-07-15 16:12 | PC.NURSE ---
pt denies chest pain at this time
--- NOTE | 2022-07-15 16:45 | P.CONCA_ITS ---
History of Present Illness History of Present Illness Date of Service: 07/15/22 Chief complaint: chest pain Narrative: This is a cardiology consultation regarding elevated troponins. Patient apparently has a history of pneumothorax few years ago. Otherwise, healthy without any major issues. No history of any cardiovascular problems or in fact anything else according to him. No significant family history either. He has been having chest pain since this morning that feels like a pr essure/discomfort/sharp pains in the substernal area. He is really not able to describe this too much. Also not able to take deep breaths. Troponins were checked and they were quite abnormal and hence Cardiology was consulted. Few days ago, he thought he had some food poisoning type symptoms but that seems resolved now. Review of Systems Review of Systems: Yes all other systems are reviewed and are negative Constitutional: Constitutional: Reports as per HPI Eyes: Eyes: Reports as per HPI ENT: Reports as per HPI Cardiovascular: Cardiovascular: Reports as per HPI, Denies acrocyanosis, Denies cool extremities, Reports chest pain, Denies leg edema, Denies lightheadedness, Denies palpitations and Denies dyspnea Respiratory: Respiratory: Reports as per HPI, Reports no additional respiratory complaints and Denies dyspnea Gastrointestinal: Gastrointestinal: Reports as per HPI and Reports no additional gastrointestinal complaints Genitourinary: Genitourinary: Reports no additional male genitourinary complaints and Reports as per HPI Musculoskeletal: Musculoskeletal: Reports no additional musculoskeletal complaints and Reports as per HPI Integumentary/Breasts: Skin/Breast: Reports system reviewed and no additional complaints, except as docu Neurologic: Reports system reviewed and no additional complaints, except as documented and Reports as per HPI Psychiatric: Psychiatric: Reports no additional psychiatric complaints and Reports as per HPI Endocrine: Endocrine: Reports no additional endocrine complaints, Reports as per HPI and Denies palpitations Hematologic/Lymphatic: Hematologic/Lymphatic: Reports no additional hematologic/lymphatic complaints and Reports as per HPI Allergic/Immunologic: Allergic/Immunologic: Reports no additional allergic/immunologic complaints and Reports as per HPI [facility] Past Medical History Medical History (Updated 07/15/22 @ 16:48 by Michele Garcia MD) Pneumothorax Family History Family History Mother No problems noted. Father No problems noted. Social History Social History Advance Directives: No Meds Allergies Allergy/AdvReac Type Severity Reaction Status Date / Time No Known Allergies Allergy Verified 07/15/22 12:19 Physical Exam Vital Signs: Vital Signs: Last Vital Signs Temp 98 F 07/15/22 12:28 Pulse 96 07/15/22 14:38 Resp 16 07/15/22 14:38 BP 122/74 07/15/22 14:38 Pulse Ox 99 07/15/22 14:38 O2 Del Method 07/15/22 14:38 BMI result Body Mass Index 23.5 Const: General: comfortable and no acute distress Orientation/consciousness: patient oriented x3 HEENT: Other: Unremarkable Head: Yes normal to inspection Neck: Neck: Yes normal visual inspection Chest: Chest palpation & inspection: normal inspection of the chest Resp: Auscultation: clear to auscultation bilaterally Cardio: Palpation: normal PMI Heart sounds: S1 normal heart sound present, S2 normal heart sound present, no gallops, no murmurs and no rubs GI: Palpation (GI): Soft to palpation Back/Spine/Pelvis: Other: unremarkable Skin: General skin exam: no rashes or lesions noted Neuro: General: patient oriented x3 Extrem: General: Yes normal to inspection Psych: Mental Status: mental status grossly normal Objective Labs and Meds 07/15/22 12:34 07/15/22 12:34 Lab results: Laboratory Results - last 24 hr 07/15/22 07/15/22 07/15/22 12:34 12:34 12:34 WBC 7.6 RBC 5.17 Hgb 16.2 Hct 46.9 MCV 90.7 MCH 31.3 MCHC 34.5 RDW 13.5 Plt Count 188 MPV 11.1 Immature Gran % (Auto) 0.1 Neut % (Auto) 56.1 Lymph % (Auto) 30.3 Carbon % (Auto) 11.8 H Eos % (Auto) 1.4 Baso % (Auto) 0.3 Lymph # (Auto) 2.3 Carbon # (Auto) 0.9 Eos # (Auto) 0.1 Baso # (Auto) 0.0 Abs Immat Gran (auto) 0.01 Absolute Neuts (auto) 4.3 Absolute Nucleated RBC 0.000 Nucleated RBC % (auto) 0.0 PT INR APTT D-Dimer High Sensitivty Sodium 139 Potassium 4.2 Chloride 102 Carbon Dioxide 27 Anion Gap 14 BUN 13 Creatinine 1.09 Estim Creat Clear Calc 119.6 Estimated GFR > 60 Random Glucose 99 Calcium 9.4 Magnesium 1.8 Total Bilirubin 0.8 AST 22 ALT 21 Alkaline Phosphatase 102 Troponin I High Sens C-Reactive Protein 1.45 H B-Natriuretic Peptide Total Protein 7.6 Albumin 4.4 Lipase 11 Influenza Type A (PCR) NEGATIVE Influenza Type B (PCR) NEGATIVE RSV RNA Qual (PCR) NEGATIVE SARS-CoV-2 RNA (RT-PCR) NEGATIVE 07/15/22 07/15/22 07/15/22 12:34 12:34 13:51 WBC RBC Hgb Hct MCV MCH MCHC RDW Plt Count MPV Immature Gran % (Auto) Neut % (Auto) Lymph % (Auto) Carbon % (Auto) Eos % (Auto) Baso % (Auto) Lymph # (Auto) Carbon # (Auto) Eos # (Auto) Baso # (Auto) Abs Immat Gran (auto) Absolute Neuts (auto) Absolute Nucleated RBC Nucleated RBC % (auto) PT INR APTT D-Dimer High Sensitivty < 150 Sodium Potassium Chloride Carbon Dioxide Anion Gap BUN Creatinine Estim Creat Clear Calc Estimated GFR Random Glucose Calcium Magnesium Total Bilirubin AST ALT Alkaline Phosphatase Troponin I High Sens 597.7 H* C-Reactive Protein B-Natriuretic Peptide 18 Total Protein Albumin Lipase Influenza Type A (PCR) Influenza Type B (PCR) RSV RNA Qual (PCR) SARS-CoV-2 RNA (RT-PCR) 07/15/22 07/15/22 13:51 15:21 WBC RBC Hgb Hct MCV MCH MCHC RDW Plt Count MPV Immature Gran % (Auto) Neut % (Auto) Lymph % (Auto) Carbon % (Auto) Eos % (Auto) Baso % (Auto) Lymph # (Auto) Carbon # (Auto) Eos # (Auto) Baso # (Auto) Abs Immat Gran (auto) Absolute Neuts (auto) Absolute Nucleated RBC Nucleated RBC % (auto) PT 11.6 INR 1.0 APTT 32.0 D-Dimer High Sensitivty Sodium Potassium Chloride Carbon Dioxide Anion Gap BUN Creatinine Estim Creat Clear Calc Estimated GFR Random Glucose Calcium Magnesium Total Bilirubin AST ALT Alkaline Phosphatase Troponin I High Sens 1398.3 H* D C-Reactive Protein B-Natriuretic Peptide Total Protein Albumin Lipase Influenza Type A (PCR) Influenza Type B (PCR) RSV RNA Qual (PCR) SARS-CoV-2 RNA (RT-PCR) ECG Interpretation: EKGs reviewed and no clear-cut evidence of any ischemia or infarction. One of the EKGs had very subtle ST-elevation inferior leads but does not look like a STEMI either. Imaging Radiologist's impression: Impressions Chest X-Ray 07/15/22 12:58 IMPRESSION: No acute intrathoracic disease. Assessment and Plan (1) NSTEMI (non-ST elevated myocardial infarction): Status: Acute (2) Myocarditis: Status: Acute Plan High sensitivity troponins are 497 followed by 1398. Echocardiogram shows inferior/inferolateral wall motion abnormality. Overall, not entirely clear if it is all myocarditis or if this is a coronary event like dissection. Much less likely to be a atherosclerotic event. He needs initially coronary assessment with either catheterization or coronary CTA. We can do which was feasible and available. For this reason, we will need to transfer him to [facility]. Based on the findings, then potentially a cardiac MRI. Discussed with ER provider. Discussed with patient/family. Time Spent With Patient Time: Total time managing care of this patient today ____ minutes. Procedures Date of Service Date of Service: 07/15/22
[2022-07-15 16:52] VITALS: BP 123/77; PULSE 75; RESP 15; O2SAT 96
[2022-07-15 17:04] VITALS: BMI 23.3
[2022-07-15 17:28] LABS: Amphetamine Screen Urine Not Detected (Not Detect); Barbiturates, Urine Not Detected (Not Detect); Benzodiazepines Screen Urine Not Detected (Not Detect); Cannabinoid Screen Urine POSITIVE (Not Detect); Cocaine Screen Urine Not Detected (Not Detect); Fentanyl, urine Not Detected (Not Detect); Opiate Screen Urine Not Detected (Not Detect); Phencyclidine Screen Urine Not Detected (Not Detect)
--- NOTE | 2022-07-15 17:43 | MHC.EDTECH ---
PT TO BE TRANSFERRED TO [facility]IA [facility] TO [facility] RM 17. ACCEPTING PHYSICIAN IS YVONNE. WILL BE HEADED TO [facility] NOW VIA [facility]
[2022-07-15 17:44] VITALS: BP 127/75; PULSE 73; RESP 18; O2SAT 98
[2022-07-15] MEDS: Heparin Sodium,Porcine/1/2NS 25,000 UNIT/250 ML IV.SOLN 9.92 UNIT IVCONT (17:49)
== END 2022-07-15 18:07 | disposition short-term general hospital (02) ==
PROVIDERS: Physician Assistant; Physician Assistant Medical; Emergency Provider Emergency Medicine
DX: I21.4 Non-ST elevation (NSTEMI) myocardial infarction (principal); I51.4 Myocarditis, unspecified; R07.9 Chest pain, unspecified; R06.02 Shortness of breath; Z20.822 Contact with and (suspected) exposure to COVID-19; Z20.828 Contact with and (suspected) exposure to other viral communicable diseases; F12.90 Cannabis use, unspecified, uncomplicated
CPT/HCPCS: 0241U; 36415; 71046; 80053; 80307; 83690; 83735; 83880; 84484; 85025; 85379; 85610; 85730; 86140; 93005; 93306; 96374; 96375; 99285; J1643; J1885; Q9957

== ENCOUNTER → 2022-07-22 14:23 | Outpatient (BNVA) | payer OTHER, SELFPAY | PROVIDERS: Visit Provider Internal Medicine | DX: Z13.89 Encounter for screening for other disorder (principal) ==